=== PATIENT | female | born 1960 | race Two or more races ===

== ENCOUNTER → 2024-07-30 | Outpatient (CLI) | payer OTHER, SELFPAY ==
--- NOTE | 2024-07-30 | XR_ITS ---
Examination: Pelvic ultrasound, transabdominal, complete Technique: Transabdominal ultrasound of the pelvis performed using grayscale imaging Date and time of exam: July 30, 2024 0853 hours INDICATIONS: Preop colonoscopy, history abdominal pelvic pain this week FINDINGS: Uterus 6.1 x 3.2 x 5.0 cm No uterine mass Endometrial stripe thickened 20 mm Right ovary 2.6 x 1.9 cm arterial flow Left ovary 2.5 x 1.8 cm arterial flow IMPRESSION: Abnormally thickened endometrial stripe, differential would include endometrial hyperplasia, malignant neoplasm of the endometrium Recommend MRI pelvis follow-up pre and postcontrast
--- NOTE | 2024-07-30 08:00 | XR_ITS ---
Examination: Abdomen sonogram, complete Date and time of exam: July 30, 2024 0828 hours INDICATIONS: Upper abdominal pain beginning one year ago, cholecystectomy. Technique: Multiple real-time grayscale transabdominal sonographic images of the abdomen have been obtained. Findings: Absent gallbladder Normal common bile duct 0.2 cm Pancreatic head 2.0 cm Aorta not enlarged Liver 13.7 cm fatty infiltration smooth contour no focal liver lesions Normal hepatopedal portal venous flow Patent IVC Right kidney 11.3 x 5.8 x 6.2 cm renal cortex 1.9 cm Left kidney 11.1 x 6.5 x 6.1 cm cortex 2.5 cm Lateral left renal cyst 4.7 cm Mild renal parenchymal scar formation No hydronephrosis Spleen 10.9 cm IMPRESSION: Normal common bile duct Fatty liver Mild bilateral renal parenchymal scar formation
== END | disposition home or self-care (01) ==
LOC: CDIM 07:48
PROVIDERS: PCP Family Medicine; Referring Provider Specialist; Visit Provider Specialist
DX: K76.0 Fatty (change of) liver, not elsewhere classified (principal); N28.89 Other specified disorders of kidney and ureter
CPT/HCPCS: 76700; 76856

== ENCOUNTER 2024-08-22 10:40 | Day surgery (SDC) | payer OTHER, SELFPAY ==
[2024-08-21 15:24] VITALS: BMI 31.1
[2024-08-22] VITALS (12 sets, daily range): BP systolic 120–167; BP diastolic 85–105; PULSE 74–123; RESP 13–21; TEMP 36.2–36.9; O2SAT 93–98; BMI 31.1
[2024-08-22] MEDS: DiphenhydrAMINE INJ 50 MG/ML VIAL 25 MG IV (11:58)
[2024-08-22] MEDS: MIDAZOLAM INJ 1 MG/ML VIAL 2 ML (ASD USE ONLY) 2 MG IV ×2 (12:00→12:17)
[2024-08-22] MEDS: fentaNYL CIT INJ 50 mCg/ML AMP 2ML (ASD USE ONLY) IV ×2 (12:01→12:13)
[2024-08-22] MEDS: LIDOCAINE JELLY 2% (Urojet) 10 ML TUBE TOP (12:13)
[2024-08-22] MEDS: MEPERIDINE INJ 25 MG/ML VIAL (ASD USE ONLY) IV (12:18)
== END 2024-08-22 13:20 | disposition home or self-care (01) ==
PROVIDERS: PCP Family Medicine; Referring Provider Specialist; Visit Provider Specialist
PROC: 0DBE8ZX Excision of Large Intestine, Via Natural or Artificial Opening Endoscopic, Diagnostic (ICD-10-PCS; CPT 45380; principal; 2024-08-22 11:00)
PROC: (CPT 43239; 2024-08-22 11:00)
DX: Z12.11 Encounter for screening for malignant neoplasm of colon (principal); K62.1 Rectal polyp; Z86.0101 Personal history of adenomatous and serrated colon polyps; K64.9 Unspecified hemorrhoids; K57.30 Diverticulosis of large intestine without perforation or abscess without bleeding; K20.90 Esophagitis, unspecified without bleeding; K22.2 Esophageal obstruction; K29.70 Gastritis, unspecified, without bleeding; K44.9 Diaphragmatic hernia without obstruction or gangrene; K31.89 Other diseases of stomach and duodenum; K31.A0 Gastric intestinal metaplasia, unspecified; K29.50 Unspecified chronic gastritis without bleeding; K20.80 Other esophagitis without bleeding
CPT/HCPCS: 45385; 43248; 43239; A4649; C1769; J1200; J2175; J2250; J3010

== ENCOUNTER → 2024-09-01 | Outpatient (CLI) | payer OTHER, SELFPAY ==
--- NOTE | 2024-09-01 07:30 | XR_ITS ---
Examination: Breast ultrasound complete, bilateral Date and time of exam: September 01, 2024 0732 hours INDICATIONS: Mammogram 06/06/2024 8 mm focal asymmetry 12:00 position right breast 10 mm focal asymmetry retroareolar region left breast Technique: Real-time grayscale ultrasonographic imaging bilateral breasts, including all 4 quadrants as well as nipple retroareolar and axillary regions. Findings: Sonographic images right breast 10:00 cyst 4 x 3 mm No solid nodules Sonographic images left breast Retroareolar oval mass circumscribed 7 x 4 x 6 mm IMPRESSION: Edward 3: Probably benign findings One additional 6 month left breast sonogram follow-up is needed to document stability of retroareolar nodule described above
--- NOTE | 2024-09-01 08:30 | XR_ITS ---
Examination: Diagnostic digital mammography, bilateral Computer aided detection 3-D breast Tomosynthesis, bilateral Date and time of exam: September 01, 2024 0751 hours INDICATIONS: Mammogram 06/06/2024 8 mm focal asymmetry 12:00 position right breast, 10 mm focal asymmetry nipple level left breast CC view Technique: Nonmagnified MLO, CC views of the breasts to been obtained, reconstructed from 3-D Tomosynthesis images. R2 computer aided detection program utilized for evaluation of suspicious masses and/or abnormal calcifications. 3-D Tomosynthesis images obtained. Findings: The breasts are heterogeneously dense, which may obscure small masses No suspicious mass depicted on the spot compression views right or left breast Impression: BI-RADS Category 2: Benign findings Return to yearly follow-up mammography.
== END | disposition home or self-care (01) ==
LOC: CDIM 07:19
PROVIDERS: PCP Family Medicine; Referring Provider Registered Nurse; Visit Provider Registered Nurse
DX: R92.323 Mammographic fibroglandular density, bilateral breasts (principal); N63.42 Unspecified lump in left breast, subareolar
CPT/HCPCS: 76641; 77062; 77066; G0279